=== PATIENT | female | born 1935 | race Caucasian/White ===

== ENCOUNTER → 2017-01-13 | Outpatient (CLI) | payer MEDICARE, OTHER ==
[2017-01-13 11:42] LABS: ANION GAP 12.1 (10.0-19.0); CALCIUM 9.2 mg/dL (8.5-10.5); CREATININE 1.1 mg/dL (0.5-1.1); POTASSIUM 5.1 mMol/L (3.7-5.1)
== END | disposition disaster alternative care site (69) ==
LOC: LGSOS 11:28
PROVIDERS: Internal Medicine Interventional Cardiology
DX: I49.5 Sick sinus syndrome (principal)

== ENCOUNTER 2017-02-23 11:54 | Emergency (ER) | payer MEDICARE, OTHER ==
--- NOTE | ~2017-02-23 | ER ---
PATIENT'S NAME: SALLY GUZMÁN [facility] AGE: 81 Y [address] ROOM: [place] [id number] LOCATION: [facility] ADMIT DATE: 02/23/2017 ER/Outpatient Report DISCHARGE DATE: 02/23/2017 FAMILY PHYSICIAN: Shameka Johnson MD ATTENDING PHYSICIAN: Yoel Vaughn CHIEF COMPLAINT: Generalized weakness and some confusion. HISTORY OF PRESENT ILLNESS: According to the patient and the daughter who accompanied her, the patient has just had a slow decline over the last week. They state she is confused; however, she clarifies that she feels like she just cannot remember things that she feels like she should. The biggest reason she was brought in today was the fact that she evidently had fallen in the middle of the night at some point in time in the restroom and had to be helped up this morning. She does not remember falling. She denies any pain, but she remembers waking up on the floor of the bathroom around 3:15 a.m. and was unable to get up. No other acute issues, and she is otherwise feeling okay at this time. She denies any other specific symptoms that are new or different today. PAST MEDICAL HISTORY: Notable for atrial fibrillation, depression, hypertension, essential tremor, possible early dementia, and focal seizures. PAST SURGICAL HISTORY: Notable for ICD, ankle fixation, and . SOCIAL HISTORY: The patient lives in an assisted living facility and has no live-in family. She denies any alcohol, tobacco, or other drug use. MEDICATIONS: Documented on the record, please see list. ALLERGIES: DOCUMENTED ON THE RECORD, PLEASE SEE LIST. PHYSICAL EXAMINATION: VITAL SIGNS: Blood pressure 125/64, pulse 67, respiratory rate is 18, temperature is 98.1, and SpO2 is 96% on room air. GENERAL: Age-appropriate female with a tired appearance. No obvious abnormalities. No distress or pain. NEUROLOGIC: The patient is awake. She is alert. She is oriented to person, place, and time. She has no cranial nerve abnormalities appreciable on exam. PATIENT'S NAME: SALLY GUZMÁN [facility] AGE: 81 Y [address] ROOM: [place] [address] LOCATION: ED ADMIT DATE: 02/23/2017 ER/Outpatient Report DISCHARGE DATE: 02/23/2017 FAMILY PHYSICIAN: Shameka Johnson MD ATTENDING PHYSICIAN: Yoel Vaughn She has no asymmetry of the motor groups of the extremities. Her strength is 4/5, but symmetric. No obvious gait abnormalities. HEENT: Normocephalic, atraumatic. Eyes are PERRL. Oropharynx is clear. NECK: Supple. Trachea is midline. CHEST: Heart has a regular rate and rhythm with no murmurs. Lungs are clear to auscultation bilateral with no rhonchi, wheezes, or rales. ABDOMEN: Soft, nontender, and nondistended. BACK: Normal to inspection and palpation. No other abnormalities. EXTREMITIES: Warm and well perfused. No other deficits. SKIN: Clean and intact. No obvious areas of breakdown. LABORATORY AND X-RAY DATA: CMS without electrolyte abnormalities. Creatinine is 1.4, GFR is 36, the patient's rough baseline. No LFT abnormalities. Troponin is below threshold. CK-MB is not elevated. Free T4 is 0.7 and the TSH is 2.49. CBC without abnormality. INR is 1. Lactate is 4.3. Urinalysis without any evidence of infection. Phenytoin level is 23.5. EKG appears to be sinus rhythm, rate of 70, with left axis deviation. Otherwise, normal intervals and axis. No signs of acute ischemia or dysrhythmia. Grossly unremarkable compared to prior EKG from 04/26/2016. Head CT unremarkable per Radiology. Chest x-ray is unremarkable per my review. IMPRESSION: 1. Generalized weakness and fatigue. 2. Fall, without injury. 3. Azotemia. 4. Supratherapeutic Dilantin level. EMERGENCY DEPARTMENT COURSE: The patient was seen and evaluated as above. There is no evidence of injury. No evidence of end-organ dysfunction. The patient appears to be mentating appropriately at this time. She was given a liter of fluids to treat her elevated lactate level which is likely related to her decreased motion. No evidence of infection or other metabolic derangement. The fluid will also help treat her azotemia. She was noted to not drink much, according to her daughter. I encouraged the patient to increase her oral fluid intake, particularly with water, to help treat this issue. The patient will go back to her current residence facility with instructions to follow up with Dr. Aubeelauck, her primary care physician, on Friday. No other directions at this time. She should skip her next 2 doses of Dilantin. YOEL VAUGHN MD PATIENT'S NAME: SALLY GUZMÁN [facility] AGE: 81 Y [address] ROOM: [place] [address] LOCATION: [facility] ADMIT DATE: 02/23/2017 ER/Outpatient Report DISCHARGE DATE: 02/23/2017 FAMILY PHYSICIAN: Shameka Johnson MD ATTENDING PHYSICIAN: Yoel Vaughn/trey /[id number] d: 02/24/17 1256 t: 03/04/17 1933, OUTPATIENT REPORT
[2017-02-23 12:44] LABS: BASOPHIL % 0.5 %; EOSINOPHIL # 0.1 K/uL (0.0-0.5); EOSINOPHIL % 1.1 %; HEMATOCRIT 39.1 % (33.0-46.0); HEMOGLOBIN 12.8 g/dL (10.0-15.0); IMMATURE GRANULOCYTE % 0.1 %; LYMPHOCYTE # 2.4 K/uL (0.8-4.0); MCH 30.4 pg (27.0-34.0); MCHC 32.7 gm/dL (32.0-36.5); MCV 92.9 fl (83.0-98.0); MONOCYTE # 0.6 K/uL (0.0-1.0); MPV 11.5 fl (9.4-12.4); NEUTROPHIL # (ANC) 4.7 K/uL (1.8-7.8); NEUTROPHIL % 60.3 %; NRBC % 0 /100WBC (0-0.00); PLATELET COUNT 207 K/uL (150-450); RBC 4.21 M/uL (3.50-5.50); RDW-CV 12.9 % (11.9-14.6); WBC 7.8 K/uL (4.0-11.0)
[2017-02-23 12:54] LABS: INR - (THERAPEUTIC) 1.02 (0.92-1.07); PROTIME 10.7 SECONDS (9.8-11.4); PTT 25 SECONDS (25-32)
[2017-02-23 13:10] LABS: ALBUMIN 3.7 gm/dL (3.5-5.0); ALK PHOS 98 IU/L (33-138); ALT 22 IU/L (12-78); ANION GAP 16.7 (10.0-19.0); AST 19 IU/L (10-40); BLOOD UREA NITROGEN 29 mg/dL (6-24); CALCIUM 8.9 mg/dL (8.5-10.5); CHLORIDE 106 mMol/L (96-110); CO2 22 mMol/L (22-32); CREATININE 1.4 mg/dL (0.5-1.1); POTASSIUM 4.7 mMol/L (3.7-5.1); SODIUM 140 mMol/L (135-145); TOTAL BILIRUBIN 0.2 mg/dL (0.0-1.5); TOTAL PROTEIN 7.5 g/dL (6.0-8.4)
[2017-02-23 13:11] LABS: ESTIMATED GFR (MDRD EQUATION) 36
[2017-02-23 13:28] LABS: BILIRUBIN URINE NEGATIVE (NEGATIVE); BLOOD URINE NEGATIVE /UL (NEGATIVE); COLOR URINE YELLOW (YELLOW); GLUCOSE URINE NEGATIVE (NEGATIVE); KETONE URINE NEGATIVE (NEGATIVE); LEUKOCYTES URINE NEGATIVE /UL (NEGATIVE); NITRITE URINE NEGATIVE (NEGATIVE); PROTEIN URINE NEGATIVE (NEGATIVE); SPEC GRAVITY URINE 1.015 (1.003-1.035); TURBIDITY URINE CLEAR (CLEAR); UROBILINOGEN URINE NORMAL (NORMAL)
== END 2017-02-23 15:04 | disposition disaster alternative care site (69) ==
LOC: GMED 11:54
PROVIDERS: Emergency Medicine
PROC: 0T9B70Z Drainage of Bladder with Drainage Device, Via Natural or Artificial Opening (ICD-10-PCS; principal; 2017-02-23)
DX: R53.1 Weakness (principal); R53.83 Other fatigue; I10 Essential (primary) hypertension; R79.89 Other specified abnormal findings of blood chemistry; I48.91 Unspecified atrial fibrillation; E11.9 Type 2 diabetes mellitus without complications; F32.9 Major depressive disorder, single episode, unspecified; Z79.82 Long term (current) use of aspirin; Z79.84 Long term (current) use of oral hypoglycemic drugs; Z79.899 Other long term (current) drug therapy; Z90.710 Acquired absence of both cervix and uterus; W19.XXXA Unspecified fall, initial encounter; Z98.890 Other specified postprocedural states; Y92.89 Other specified places as the place of occurrence of the external cause
CPT/HCPCS: J7030

== ENCOUNTER → 2017-05-14 | Outpatient (CLI) | payer MEDICARE, OTHER | LOC: LGSMG 09:47 | DX: G40.209 Localization-related (focal) (partial) symptomatic epilepsy and epileptic syndromes with complex partial seizures, not intractable, without status epilepticus (principal) ==

== ENCOUNTER → 2017-05-20 | Outpatient (CLI) | payer MEDICARE, OTHER | END | disposition disaster alternative care site (69) | LOC: GBCOE 13:48 | DX: Z13.820 Encounter for screening for osteoporosis (principal); Z78.0 Asymptomatic menopausal state ==